=== PATIENT | female | born 1960 | race African-American/Black ===

== ENCOUNTER 2019-10-02 17:38 | Emergency (ER) | payer MEDICAID ==
[~2019-10-02] VITALS: Ht 165.1 cm; Wt 65.0 kg
[2019-10-02 18:27] VITALS: BP 122/77
== END 2019-10-02 18:35 | disposition left against medical advice (07) ==
LOC: ER 17:38
DX: R55 Syncope and collapse (principal); I11.9 Hypertensive heart disease without heart failure
CPT/HCPCS: 93005; 99283